=== PATIENT | female | born 1955 | race Caucasian/White ===

== ENCOUNTER 2016-11-12 12:48 | Emergency (ER) | payer OTHER ==
[~2016-11-12] VITALS: Ht 157.5 cm; Wt 71.0 kg
[~2016-11-12 12:48] MED LIST: LISI-360 PO; LORTA10 PO; SERT100 PO; ZANA4CAP PO
[2016-11-12 12:50] VITALS: BP 93/52; PULSE 60; RESP 20; TEMP 97.8; O2SAT 95
--- NOTE | 2016-11-12 12:55 | PD ---
Physical Exam Date Seen by Provider: November 12, 2016 Time Seen by Provider: 12:52 Narrative Pt presents with a rash that has been present for 3 weeks. Pt has been treated but rash persists and continues to get worse. Rash is itchy. VSS awaiting bed placment. MDM Supervised Visit with TEOFILO: [place] Du November 12, 2016 12:55
[2016-11-12 13:29] VITALS: BP 82/53; PULSE 59; O2SAT 97
--- NOTE | 2016-11-12 13:37 | PD ---
HPI Chief Complaint: Skin Problem Time Seen by Provider: 13:36 Travel History International Travel<30 days: No Contact w/Intl Traveler<30days: No Traveled to known affect area: No History of Present Illness HPI 61-year-old female presents to the emergency department with complaint of a rash 3 weeks. She has been being treated for scabies with Elimite cream and has used it twice. She reports no improvement in her rash. Rash is itchy. She also has a prescription for hydralazine and oral steroids. She has an appointment on December 04 with dermatology. She has not had an formulator compounder come out to the house. Her granddaughter has a similar rash. She denies fever, vomiting. Patient has history of hypertension and takes amlodipine and lisinopril which she took prior to arrival. Her blood pressures decreased in the ER. She denies lightheadedness, dizziness, faint feeling. She has no other medical complaints. Allergies to latex. No other modifying factors or associated signs and symptoms. PFSH Past Medical History Hx Anticoagulant Therapy: Yes Arthritis: Yes Blood Disorders: No Anxiety: Yes Heart Rhythm Problems: No Cancer: No Cardiac Catheterization: No Cardiovascular Problems: Yes High Cholesterol: No Congestive Heart Failure: No Cerebrovascular Accident: Yes Developmental Delay: No Diabetes: No Diminished Hearing: No Endocrine: No Gastrointestinal Disorders: Yes Genitourinary: No Headaches: Yes Hypertension: Yes Immune Disorder: No Musculoskeletal: Yes Neurologic: Yes Psychiatric: No Reproductive: No Respiratory: No Immunizations Current: No Menopausal: Yes : 1 Para: 1 Miscarriage: 0 : 0 Past Surgical History Abdominal Surgery: Yes (HERNIA) AICD: No Arteriovenous Shunt: No Cholecystectomy: Yes (GALL STONES REMOVED) Coronary Artery Bypass Graft: No Gynecologic Surgery: Yes Hysterectomy: Yes Insulin Pump: No Joint Replacement: No Neurologic Surgery: Yes (BACK 1998) Pacemaker: No Other Surgery: Yes (BREAST AUGMENTALTION AND THEN REMOVAL) Social History Alcohol Use: No Tobacco Use: Yes (OCC) Substance Use: No Allergies-Medications (Allergen,Severity, Reaction): Coded Allergies: Latex (Verified Allergy, Intermediate, Rash, 11/12/16) Reported Meds & Prescriptions Reported Meds & Active Scripts Active Reported Zanaflex (Tizanidine HCl) 4 Mg Cap 4 Mg PO TID Zoloft (Sertraline HCl) 100 Mg Tab 100 Mg PO DAILY Lortab 10/325 Tab (Hydrocodone-Acetaminophen) 10 Mg/325 Mg Tab 1 Tab PO Q6H PRN Lisinopril 10 Mg Tab 20 Mg PO BID Review of Systems Except as stated in HPI: all other systems reviewed are Neg Physical Exam Narrative GENERAL: Well-nourished, well-developed female patient, in no acute distress; afebrile, nontoxic-appearing SKIN: Warm and dry. Small areas of Scabbed, erythemic areas to right forearm, left neck and bilateral lower extremities. No areas with cellulitic process noted. HEAD: Atraumatic. Normocephalic. EYES: Pupils equal and round. No scleral icterus. No injection or drainage. ENT: Mucosa pink and moist. Airway patent. NECK: Trachea midline. CARDIOVASCULAR: Regular rate. RESPIRATORY: No accessory muscle use. GASTROINTESTINAL: Flat. MUSCULOSKELETAL: No obvious deformities. No clubbing. No cyanosis. No edema. NEUROLOGICAL: Awake and alert. Oriented 3. No obvious cranial nerve deficits. Motor grossly within normal limits. Normal speech. PSYCHIATRIC: Appropriate mood and affect; insight and judgment normal. Data Data Last Documented VS Vital Signs Date Time Temp Pulse Resp B/P Pulse Ox O2 Delivery O2 Flow Rate FiO2 11/12/16 13:29 59 82/53 97 11/12/16 12:50 97.8 20 Room Air [facility] Medical Decision Making Medical Screen Exam Complete: Yes Emergency Medical Condition: Yes Medical Record Reviewed: Yes Differential Diagnosis Scabies, bedbug bites, hives, low blood pressure Narrative Course 61-year-old with nonspecific rash and skin eruption that she has had for 3 weeks and has been being treated for scabies. She has been using Elimite cream , oral steroids, and other topical ointments with no relief of symptoms. She has not followed up with dermatology. She denies fever, vomiting. Patient has history of high blood pressure and takes amlodipine and lisinopril. She took her medications prior to arrival. Blood pressure is in triage 93/52. Blood pressure rechecked in the ER room and is 82/53. I symptoms of low blood pressure. I discussed moving the her to a medical bed for further treatment and evaluation of low blood pressure and the patient says she does not want to stay and wants to leave AMA. 1339: AMA: The risks of leaving against medical advice without further evaluation treatment were discussed with the patient. These risks include cardiac dysfunction, cardiac dysrhythmia, possible heart attack, possible stroke or . The patient indicated understanding of these risks and appeared to have the capacity to make this decision. Diagnosis Primary Impression: Left against medical advice Disposition: 07 AGAINST MEDICAL ADVICE Fannie Neves November 12, 2016 13:37
== END 2016-11-12 13:52 | disposition left against medical advice (07) ==
LOC: NEPK 12:48
DX: Z53.21 Procedure and treatment not carried out due to patient leaving prior to being seen by health care provider (principal); B86 Scabies; I10 Essential (primary) hypertension; Z79.01 Long term (current) use of anticoagulants
CPT/HCPCS: 99282